=== PATIENT | female | born 1960 | race Caucasian/White ===

== ENCOUNTER 2017-03-25 12:28 | Emergency (ER) | payer OTHER ==
[~2017-03-25] VITALS: Wt 95.0 kg
[~2017-03-25 12:28] MED LIST: AMLO5TAB4 PO; IBUP200C11; [UNRECOGNIZED DRUG - REMARK]
--- NOTE | 2017-03-25 12:47 | ERA ---
ER Documentation Chief Complaint Date/Time DATE: 03/25/17 TIME: 12:46 Chief Complaint Palpitation HPI The patient is a 56-year-old female, presenting to the ER because of palpitation intermittently for the last 3 days, worse with walking. She also complains of numbness around her mouth and general body numbness and minimal chest discomfort that is worse with palpation. He denies any chest discomfort or pain at this time, denies similar symptoms previously. He denies fever, syncope, near syncope, neck pain, abdominal pain, vomiting, dysuria, diarrhea. She does not smoke nor drink Past medical history: Migraine Past surgical history: None Family history: Thyroid disease ROS All systems reviewed and are negative except as per history of present illness. Medications Home Meds Discontinued Reported Medications Amlodipine Besylate* (Norvasc*) 5 Mg Tablet, 5 MG PO DAILY 05/08/11 [For Palpitation] No Conflict Check 02/22/11 Ibuprofen* (Advil*) 200 Mg Capsule 02/22/11 Allergies Allergies: Coded Allergies: No Allergy Information Available (Verified Allergy, Unknown, 03/25/17) PMhx/Soc History of Surgery: No Anesthesia Reaction: No Hx Neurological Disorder: No Hx Respiratory Disorders: No Hx Cardiac Disorders: Yes (htn) Hx Psychiatric Problems: No Hx Miscellaneous Medical Probl: No Hx Alcohol Use: No Hx Substance Use: No Hx Tobacco Use: No Physical Exam Vitals Vital Signs Date Time Temp Pulse Resp B/P Pulse Ox O2 Delivery O2 Flow Rate FiO2 03/25/17 16:01 72 18 115/62 98 Room Air 03/25/17 14:42 98.6 65 15 124/82 98 Room Air 03/25/17 12:33 98.7 80 17 150/91 98 Physical Exam Const: No acute distress. Head: Atraumatic. Eyes: Normal Conjunctiva. ENT: Normal External Ears, Nose and Mouth. Neck: Full range of motion. No meningismus. Resp: Clear to auscultation bilaterally. Cardio: Regular rate and rhythm. Left chest wall tenderness with palpation, no crepitus Abd: Soft, non distended, normal bowel sounds, non tender. Skin: No petechiae or rashes. Back: No midline or flank tenderness. Ext: No cyanosis, or edema. Neur: Awake and alert. No focal deficit Psych: Normal Mood and Affect. Result Diagram: 03/25/17 1345 03/25/17 1345 Results 24 hrs Laboratory Tests Test 03/25/17 13:45 White Blood Count 5.310^3/ul Red Blood Count 4.2110^6/ul Hemoglobin 12.6g/dl Hematocrit 38.4% Mean Corpuscular Volume 91.2fl Mean Corpuscular Hemoglobin 29.9pg Mean Corpuscular Hemoglobin Concent 32.8g/dl Red Cell Distribution Width 12.6% Platelet Count 29532^3/UL Mean Platelet Volume 8.9fl Neutrophils % 47.5% Lymphocytes % 41.7% Monocytes % 9.2% Eosinophils % 0.8% Basophils % 0.6% Nucleated Red Blood Cells % 0.0/100WBC Neutrophils # 2.510^3/ul Lymphocytes # 2.210^3/ul Monocytes # 0.510^3/ul Eosinophils # 0.010^3/ul Basophils # 0.010^3/ul Nucleated Red Blood Cells # 0.010^3/ul Prothrombin Time 13.0Sec Prothrombin Time Ratio 1.0 INR International Normalized Ratio 0.98 Activated Partial Thromboplast Time 31.6Sec Sodium Level 142mmol/L Potassium Level 4.5mmol/L Chloride Level 105mmol/L Carbon Dioxide Level 29mmol/L Anion Gap 13 Blood Urea Nitrogen 15mg/dl Creatinine 0.80mg/dl Glucose Level 84mg/dl Calcium Level 9.2mg/dl Troponin I < 0.012ng/ml Thyroid Stimulating Hormone (TSH) 0.822MIU/L Procedures/[place] [id number] Radiology Main Line: [phone] DIAGNOSTIC IMAGING REPORT Patient: LYUDMILA WELSH : 1960 Age: 56 Sex: F MR #: [id number] DOS: 03/25/17 1309 Ordering MD: HOMA MONROY MD Location: E/R Room/Bed: PROCEDURE: CHEST 1VW CLINICAL INDICATION: Chest pain TECHNIQUE: Single frontal view of the chest was obtained COMPARISON: 09/13/2013 FINDINGS: The cardiac size is normal. Mild atherosclerotic calcifications are demonstrated. There is no pulmonary vascular congestion. The lungs are clear. No consolidation, effusion, or pneumothorax. Mild degenerative changes of the visualized osseous structures are visualized. IMPRESSION: 1. No acute cardiopulmonary process. 2. Atherosclerosis. RPTAT:PP .Alan Jensen MD, Date Time Electronically viewed and signed by .Alan Jensen MD, on 03/25/2017 13:45 .V/ CC: HOMA MONROY MD EK:34 PM read by emergency physician Rate/Rhythm: Normal Sinus Rhythm 77 beats/min QRS, ST, T-waves: No ST elevation, no T inversion Impression: Normal EKG EK:44 PM read by emergency physician Rate/Rhythm: Normal Sinus Rhythm 62 beats/min QRS, ST, T-waves: No ST elevation, no T inversion Impression: Normal EKG MEDICAL MAKING DECISION: The patient is a 56-year-old female, presenting with acute palpitation of unclear etiology. She remains well emergency department The differential diagnoses considered include but are not limited to anxiety attack, panic attack, excessive caffeine intake, thyroid disease, acute coronary syndrome, acute myocardial infarction, pericarditis, pulmonary embolism , aortic dissection, pneumonia, pleural effusion, pneumothorax, GERD, chest wall pain. Departure Diagnosis: Primary Impression: Palpitation Condition: Good Comments I discussed the findings with the patient. I advised the patient to follow-up with the primary physician in about 1-2 days, sooner if needed and return if any concern. The patient's blood pressure was elevated (>120/80) but appears stable without evidence of hypertension emergency or urgency. The patient was counseled about the risks of hypertension and urged to pursue outpatient monitoring and therapy within a week with their primary care physician. HOMA MONROY MD Mar 25, 2017 12:47
--- NOTE | 2017-03-25 13:45 | RADRPT ---
PROCEDURE: CHEST 1VW CLINICAL INDICATION: Chest pain TECHNIQUE: Single frontal view of the chest was obtained COMPARISON: 09/13/2013 FINDINGS: The cardiac size is normal. Mild atherosclerotic calcifications are demonstrated. There is no pulmonary vascular congestion. The lungs are clear. No consolidation, effusion, or pneumothorax. Mild degenerative changes of the visualized osseous structures are visualized. IMPRESSION: 1. No acute cardiopulmonary process. 2. Atherosclerosis. RPTAT:PP .Alan Jensen MD, MD Date Time Electronically viewed and signed by .Alan Jensen MD, on 03/25/2017 13:45 .V/
[2017-03-25 13:54] LABS: ADD SCAN DIFF NO
[2017-03-25 13:56] LABS: BASOPHILS % 0.6 % (0.0-2.0); EOSINOPHILS % 0.8 % (0.0-7.0); HEMATOCRIT 38.4 % (37.0-47.0); HEMOGLOBIN 12.6 g/dl (12.0-16.0); LYMPHOCYTES # 2.2 10^3/ul (0.8-2.9); LYMPHOCYTES % 41.7 % (15.0-51.0); MEAN CORPUSCULAR HEMOGLOBIN 29.9 pg (29.0-33.0); MEAN CORPUSCULAR HGB CONC 32.8 g/dl (32.0-37.0); MEAN CORPUSCULAR VOLUME 91.2 fl (82.0-101.0); MEAN PLATELET VOLUME 8.9 fl (7.4-10.4); MONOCYTE # 0.5 10^3/ul (0.3-0.9); MONOCYTES % 9.2 % (0.0-11.0); NEUTROPHIL # 2.5 10^3/ul (1.6-7.5); NEUTROPHILS % 47.5 % (39.0-77.0); PLATELET COUNT 249 10^3/UL (140-415); RED BLOOD COUNT 4.21 10^6/ul (4.20-5.40); RED CELL DISTRIBUTION WIDTH 12.6 % (11.5-14.5); WHITE BLOOD COUNT 5.3 10^3/ul (4.8-10.8)
[2017-03-25 14:14] LABS: ANION GAP 13 (8-16); BLOOD UREA NITROGEN 15 mg/dl (7-20); CALCIUM 9.2 mg/dl (8.4-10.2); CARBON DIOXIDE 29 mmol/L (21-31); CHLORIDE 105 mmol/L (97-110); GLUCOSE 84 mg/dl (70-220); POTASSIUM 4.5 mmol/L (3.5-5.1); SODIUM 142 mmol/L (135-144)
[2017-03-25 14:16] LABS: INR 0.98
[2017-03-25 14:17] LABS: PARTIAL THROMBOPLASTIN TIME 31.6 Sec (25.0-35.0)
[2017-03-25 14:30] LABS: TROPONIN-I < 0.012 ng/ml (0.00-0.12)
[2017-03-25 14:42] VITALS: TEMP 98.6
[2017-03-25 15:08] LABS: THYROID STIMULATING HORMONE 0.822 MIU/L (0.465-4.680)
[2017-03-25 16:01] VITALS: BP 115/62; PULSE 72; RESP 18
== END 2017-03-25 16:02 | disposition home or self-care (01) ==
LOC: E/R 12:28
DX: R00.2 Palpitations (principal); I10 Essential (primary) hypertension; R07.9 Chest pain, unspecified
CPT/HCPCS: 36415; 71010; 80048; 84443; 84484; 85025; 85610; 85730; 93005

== ENCOUNTER 2018-06-23 18:35 | Emergency (ER) | END 2018-06-23 21:53 | disposition home or self-care (01) ==